=== PATIENT | female | born 1960 | race Caucasian/White ===

== ENCOUNTER 2017-06-27 16:21 | Emergency (ER) | payer OTHER ==
[~2017-06-27] VITALS: Ht 152.4 cm; Wt 6.0 kg
[2017-06-27 16:21] VITALS: Ht 152.4 cm; Wt 6.0 kg
[~2017-06-27 16:21] MED LIST: ALLO300T2 PO; AMIT50TA3 PO; FLOV110 INHALATION; GABA-526 PO; GLIP-95 PO; HYDR-3011 PO; IBUP200C PO; ISOS60TA PO; LEVE500T8 PO; LEVO200T6 PO; MAXZ25 PO; METF850T PO; METO25TA4 PO; OMEP20CA16 PO; PRAV20TA63 PO; SITA50TA2 PO
[2017-06-27] MEDS ORDERED: LEVETIRACETAM 1000 MG (PMX) 100 ML IVPB STA (16:56)
[2017-06-27] MEDS ORDERED: SOD CHLORIDE 0.9% 1,000 ML IV STA (16:56)
[2017-06-27 17:39] LABS: BASOPHILS % 0.5 % (0.0-2.0); EOSINOPHILS # 0.1 10^3/ul (0.0-0.5); HEMATOCRIT 36.3 % (37.0-47.0); HEMOGLOBIN 12.2 g/dl (12.0-16.0); LYMPHOCYTES # 2.1 10^3/ul (0.8-2.9); LYMPHOCYTES % 31.7 % (15.0-51.0); MEAN CORPUSCULAR HEMOGLOBIN 28.3 pg (29.0-33.0); MEAN CORPUSCULAR HGB CONC 33.6 g/dl (32.0-37.0); MEAN CORPUSCULAR VOLUME 84.2 fl (82.0-101.0); MEAN PLATELET VOLUME 10.9 fl (7.4-10.4); MONOCYTE # 0.4 10^3/ul (0.3-0.9); MONOCYTES % 6.7 % (0.0-11.0); NEUTROPHILS % 58.9 % (39.0-77.0); PLATELET COUNT 273 10^3/UL (140-415); RED BLOOD COUNT 4.31 10^6/ul (4.20-5.40); RED CELL DISTRIBUTION WIDTH 14.6 % (11.5-14.5); WHITE BLOOD COUNT 6.6 10^3/ul (4.8-10.8)
--- NOTE | 2017-06-27 18:02 | ERD ---
ER Documentation Chief Complaint Date/Time DATE: 06/27/17 TIME: 17:58 Chief Complaint BIB RA FOR EVAL OF SEIZURE. NO INJURIES NOTED. PT TAKES KEPPRA HPI This 56-year-old female comes in the emergency room for a seizure after she was at an [employer] office and they were flashing of light in her eye. This induced a seizure. She has a seizure disorder. Not had a seizure for 1 month. She is on Keppra and Lamictal for her seizures. She had a brief postictal period but now she is able to answer all the questions for herself. She feels otherwise well although a little groggy. She says that seizures can be induced by light and this was not unusual. Says she has full use of all of her body with no focal neurological deficits. ROS All systems reviewed and are negative except as per history of present illness. Medications Home Meds Reported Medications Ibuprofen* (Ibuprofen*) 200 Mg Capsule, 200 MG PO BID Y for PAIN, CAP 07/26/16 Sitagliptin* (Januvia*) 50 Mg Tablet, 50 MG PO DAILY, #30 TAB 07/26/16 Hydroxyzine Hcl* (Hydroxyzine Hcl*) 25 Mg Tablet, 25 MG PO Q6 Y for ITCHING, # 30 TAB 07/26/16 Allopurinol* (Allopurinol*) 300 Mg Tablet, 300 MG PO DAILY, TAB 07/26/16 Triamterene/Hctz* (Maxzide (37.5-25)*) 1 Each Tablet, 1 EACH PO DAILY, #30 TAB 07/26/16 Levetiracetam* (Levetiracetam*) 500 Mg Tablet, 1500 MG PO BID, TAB 07/26/16 Isosorbide Mononitrate* (Isosorbide Mononitrate*) 60 Mg Tab.er.24h, 60 MG PO DAILY, TAB 07/26/16 Glipizide* (Glipizide*) 10 Mg Tablet, 20 MG PO BID, TAB 07/26/16 Fluticasone Propionate* (Flovent* HFA 110) 12 Gm Inha, 2 PUFF INHALATION BID, # 1 INHALER 01/27/16 Gabapentin* (Gabapentin*) 600 Mg Tablet, 600 MG PO BID, #60 TAB 01/27/16 Metoprolol Tartrate* (Lopressor*) 25 Mg Tablet, 25 MG PO DAILY, #60 TAB 01/27/16 Omeprazole* (Omeprazole*) 20 Mg Capsule.dr, 20 MG PO DAILY, #30 CAP 01/27/16 Amitriptyline Hcl* (Amitriptyline Hcl*) 50 Mg Tablet, 50 MG PO QHS, #30 TAB 01/27/16 Levothyroxine Sodium* (Levothyroxine Sodium*) 200 Mcg Tablet, 225 MCG PO BEFORE BREAKFAST, #30 TAB 01/27/16 Pravastatin Sodium* (Pravastatin Sodium*) 20 Mg Tablet, 20 MG PO daily 08/30/13 Metformin Hcl* (Metformin Hcl*) 850 Mg Tablet, 850 MG PO tid 08/30/13 Allergies Allergies: Coded Allergies: divalproex sodium (Verified Allergy, Mild, RASHES, 07/26/16) topiramate (Verified Allergy, Mild, PARALYSIS, 07/26/16) Phenytoin Sodium Extended (Verified Allergy, Unknown, 07/26/16) carbamazepine (Unverified Allergy, Unknown, 07/26/16) lisinopril (Verified Allergy, Unknown, 07/26/16) phenytoin sodium (Verified Allergy, Unknown, 07/26/16) Uncoded Allergies: PENDIL (Allergy, Unknown, 01/27/16) PMhx/Soc History of Surgery: Yes (CHOLECYSTECTOMY, HYSTERECTOMY) Anesthesia Reaction: No Hx Neurological Disorder: Yes (seizures, neuropathy) Hx Respiratory Disorders: Yes (asthma) Hx Cardiac Disorders: Yes (hypertension) Hx Psychiatric Problems: No Hx Alcohol Use: No Hx Substance Use: No Hx Tobacco Use: No Physical Exam Vitals Vital Signs Date Time Temp Pulse Resp B/P Pulse Ox O2 Delivery O2 Flow Rate FiO2 06/27/17 16:21 97.9 64 18 167/87 97 Physical Exam Const: [] No distress Head: Atraumatic Eyes: Normal Conjunctiva, EOMI, ANTWON ENT: Normal External Ears, Nose and Mouth. Neck: Full range of motion..~ No meningismus. Resp: Clear to auscultation bilaterally Cardio: Regular rate and rhythm, no murmurs Abd: Soft, non tender, non distended. Normal bowel sounds Skin: No petechiae or rashes Back: No midline or flank tenderness Ext: No cyanosis, or edema Neur: Awake and alert and oriented 3, cranial 2 through 12 intact, no cerebellar deficits Psych: Normal Mood and Affect Result Diagram: 06/27/17 1713 Results 24 hrs Laboratory Tests Test 06/27/17 17:13 White Blood Count 6.610^3/ul Red Blood Count 4.3110^6/ul Hemoglobin 12.2g/dl Hematocrit 36.3% Mean Corpuscular Volume 84.2fl Mean Corpuscular Hemoglobin 28.3pg Mean Corpuscular Hemoglobin Concent 33.6g/dl Red Cell Distribution Width 14.6% Platelet Count 08273^3/UL Mean Platelet Volume 10.9fl Neutrophils % 58.9% Lymphocytes % 31.7% Monocytes % 6.7% Eosinophils % 2.0% Basophils % 0.5% Nucleated Red Blood Cells % 0.0/100WBC Neutrophils # (Manual) 3.910^3/ul Lymphocytes # 2.110^3/ul Monocytes # 0.410^3/ul Eosinophils # 0.110^3/ul Basophils # 0.010^3/ul Nucleated Red Blood Cells # 0.010^3/ul Current Medications Medications (Trade) Dose Ordered Sig/Elijah Route PRN Reason Start Time Stop Time Status Last Admin Dose Admin Sodium Chloride 1,000 ml @ 1,000 mls/hr Q1H STAT IV 06/27/17 16:56 06/27/17 17:55 DC 06/27/17 17:29 Levetiracetam (Keppra 1,000mg/ 100ml (Pmx)) 100 ml @ 400 mls/hr ONCE STAT IVPB 06/27/17 16:56 06/27/17 17:10 DC 06/27/17 17:29 Procedures/MDM Recurrent seizure patient on seizure medications. This was induced by flashing light. Patient did not have a prolonged postictal period and is otherwise completely normal and mental status currently with a normal neurological exam. She was loaded with 1 g of Keppra and given a liter of normal saline. She is feeling well now and her is at bedside. Going to discharge instructions see her primary care doctor within the next couple of days as well as notify her neurologist of the seizure. Departure Diagnosis: Primary Impression: Seizure Condition: Stable Patient Instructions: Seizure, Recurrent [Adult] Referrals: MILI BLACK (PCP) Additional Instructions: Call your primary care doctor TOMORROW for an appointment during the next 1-2 days.See the doctor sooner or return here if your condition worsens before your appointment time. MARCELLA MARTINEZ DO Jun 27, 2017 18:02
[2017-06-27] MEDS ORDERED: ASPI-664 PO (18:22)
[2017-06-27] MEDS ORDERED: LAMO100T PO (18:22)
[2017-06-27 18:25] LABS: CALCIUM 9.6 mg/dl (8.4-10.2); CREATININE 0.86 mg/dl (0.44-1.00); POTASSIUM 4.4 mmol/L (3.5-5.1)
[2017-06-27] MEDS ORDERED: LEVO75TA5 PO (18:25)
[2017-06-27] MEDS ORDERED: METO-429 PO (18:26)
[2017-06-27] MEDS ORDERED: CHOL200073 PO (18:27)
[2017-06-27] MEDS ORDERED: SITA100T8 PO (18:28)
[2017-06-27] MEDS ORDERED: ZOLP5TAB7 PO (18:29)
[2017-06-27] MEDS ORDERED: LEVE100018 PO (18:29)
[2017-06-27] MEDS ORDERED: ALBU18HF INHALATION (18:32)
[2017-06-27 19:20] VITALS: BP 124/65; PULSE 66; RESP 14; TEMP 98
== END 2017-06-27 19:22 | disposition home or self-care (01) ==
LOC: E/R 16:21
DX: G40.909 Epilepsy, unspecified, not intractable, without status epilepticus (principal); J45.909 Unspecified asthma, uncomplicated; I10 Essential (primary) hypertension; R40.2142 Coma scale, eyes open, spontaneous, at arrival to emergency department; R40.2252 Coma scale, best verbal response, oriented, at arrival to emergency department; R40.2362 Coma scale, best motor response, obeys commands, at arrival to emergency department; Z79.84 Long term (current) use of oral hypoglycemic drugs
CPT/HCPCS: 36415; 80048; 85025; 96374; J1953; J7030; Z7502

== ENCOUNTER 2018-01-04 12:03 | Emergency (ER) | END 2018-01-04 18:25 | disposition home or self-care (01) ==